=== PATIENT | male | born 1955 | race American Indian/Alaskan Native ===

== ENCOUNTER 2016-09-27 03:23 | Emergency (ER) | payer BC ==
[~2016-09-27] VITALS: Ht 180.3 cm; Wt 88.5 kg
[2016-09-27 03:53] LABS: BASO # 0.1 x10^3/uL (0.0-0.2); BASO % 1 % (0-3); EOS % 2 % (0-3); HEMATOCRIT 29.7 % (39.0-53.0); HEMOGLOBIN 9.9 g/dL (13.0-17.5); LYMPH # 1.5 x10^3/uL (1.0-4.8); LYMPH % 12 % (24-48); MEAN CORPUSCULAR HEMOGLOBIN 33 pg (25-35); MEAN CORPUSCULAR HGB CONC 33 g/dL (31-37); MEAN CORPUSCULAR VOLUME 99 fL (79-100); MONO % 6 % (0-9); NEUT % 80 % (31-73); PLATELET COUNT 551 x10^3/uL (140-400); RED BLOOD COUNT 3.01 x10^6/uL (4.30-5.70); RED CELL DISTRIBUTION WIDTH 13.3 % (11.5-14.5); WHITE BLOOD COUNT 12.2 x10^3/uL (4.0-11.0)
[2016-09-27 04:00] LABS: CALCIUM 8.7 mg/dL (8.5-10.1); CREATININE 1.1 mg/dL (0.7-1.3); GFR 67.6; POTASSIUM 3.9 mmol/L (3.5-5.1)
[2016-09-27] MEDS ORDERED: HYDROMORPHONE 2 MG/ML VIAL. IV ONE (04:00)
[2016-09-27] MEDS ORDERED: ONDANSETRON PF 4 MG/2 ML VIAL. IV ONE (04:00)
[2016-09-27 04:06] LABS: ALBUMIN 3.1 g/dL (3.4-5.0); ALBUMIN/GLOBULIN RATIO 0.8 (1.0-1.7); TOTAL BILIRUBIN 0.4 mg/dL (0.2-1.0); TOTAL PROTEIN 7.1 g/dL (6.4-8.2)
--- NOTE | 2016-09-27 05:57 | PHYS DOC ---
Past Medical History Past Medical History: Anxiety, Depression, High Cholesterol, Hypertension Additional Past Medical Histor: MOOD DISORDER Past Surgical History: Angioplasty, Coronary Bypass Surgery Additional Past Surgical Histo: AORTIC BY-PASS AND femoral popliteal BY PASS AT [facility] Alcohol Use: None Drug Use: None Adult General Chief Complaint Chief Complaint: LOWER EXT PAIN HPI HPI Patient is a 61 year old gentleman with a history significant for peripheral artery disease, hypertension, no history of diabetes liver longer kidney problems presents to the ER today for evaluation of severe pain to his left calf that woke him up from sleep approximately 220 5 in the morning. Patient reports that he had an aorto bifemoral bypass in the left femoropopliteal bypass at [facility] on September 13 and was discharged on September 20. Patient reports that he was doing well until 225 when he had severe pain to his calf. Patient reports that he's been having clear red drainage from his distal incision. Patient denies any fevers shakes chills nausea vomiting diarrhea chest pain or shortness of breath. Patient reports that he has been on Lortab 7. fives at home to control his discomfort however his pain has not been well controlled. Patient reports that he thinks it's because he is becoming resistant to the pain medicines because he has been on Lortab 7. fives for approximately 3 years for chronic migraine headaches.(I did review the patient' s K tracks and I am unable to find any evidence of this inescapable tracks however we do not have any documentation her records from [place] regarding narcotic use.) Patient denies any fevers shakes chills nausea vomiting diarrhea chest pain or shortness of breath. Patient's physical exam was significant for swelling to his left calf. Patient' s wounds were all clean and dry. There was some mild surrounding erythema around the staple sites without any purulence or significant drainage. Patient has good pulses distally. Patient has 2+ pitting edema to his left ankle. A sterile Q-tip was placed inside the wound between the poly in his distal wound and a significant amount of serosanguineous fluid was drained from the patient's calf.. Patient's calf is now soft and feels much better. Patient has no evidence of arterial occlusion. Patient's labs were all within normal limits. Patient has a white count is within normal range without any left shift. Patient's lactic acid was within normal limits. A/P #1 left calf pain patient is status post surgery at [facility]. Patient requested to come to the closest hospital facility for evaluation of his severe left calf pain. Patient's physical exam is consistent with likely seroma accumulation to his left calf which is most likely cause of his discomfort. The seroma was drained in the ED was significant decrease in swelling of his left calf and significant decrease in pain and discomfort. Patient was given 1 mg of IV Dilaudid in the ED with significant resolution of his discomfort. Patient is requesting that we send him home with something stronger than Lortab 7.5 to assist with his pain. I discussed with the patient and I will go ahead and write a prescription for Percocet 7.5 to assist with his discomfort. Prior to being discharged we will obtain ultrasound of his left lower extremity. If that is negative patient understands that he will be discharged home with strict instructions to follow-up with his surgeon for reevaluation of his wound today. I advised patient that if he is unable to see his surgeon today that he needs to follow-up with his primary care physician today for further assistance with this discomfort and reevaluation of his left leg wound. Early no significant evidence of any cellulitis in the ED and this has essentially been ruled out. I do not feel that this is sinus symptom of a DVT however we will get the ultrasound. I do not believe that this is sign or symptom consistent with arterial occlusion. She has good pulses distally. Review of Systems Review of Systems Constitutional: Denies fever or chills [] Eyes: Denies change in visual acuity, redness, or eye pain [] HENT: Denies nasal congestion or sore throat [] All other review systems are negative except as documented in the history of present illness. Current Medications Current Medications Current Medications Medications (Trade) Dose Ordered Sig/Andrea Start Time Stop Time Status Last Admin Dose Admin Cephalexin HCl (Keflex) 500 mg 1X ONCE 09/27/16 06:30 09/27/16 06:31 DC 09/27/16 06:30 500 MG Hydromorphone HCl (Dilaudid) 1 mg 1X ONCE 09/27/16 04:00 09/27/16 04:01 DC 09/27/16 03:55 1 MG Ondansetron HCl (Zofran) 4 mg 1X ONCE 09/27/16 04:00 09/27/16 04:01 DC 09/27/16 03:55 4 MG Allergies Allergies Allergies Coded Allergies Type Severity Reaction Last Updated Verified No Known Drug Allergies 09/27/16 No Physical Exam Physical Exam Constitutional: Well developed, well nourished, no acute distress, non-toxic appearance. [] HENT: Normocephalic, atraumatic, bilateral external ears normal, oropharynx moist, no oral exudates, nose normal. [] Eyes: PERRLA, EOMI, conjunctiva normal, no discharge. [] Neck: Normal range of motion, no tenderness, supple, no stridor. [] Cardiovascular:Heart rate regular rhythm, Lungs & Thorax: Bilateral breath sounds clear to auscultation [] Abdomen: Bowel sounds normal, soft, no tenderness, no masses, no pulsatile masses. [] Skin: Warm, dry, no erythema, no rash. Well-healing wounds as described above to his left lower extremity left groin right groin and right lower extremity. [ ] Back: No tenderness, no CVA tenderness. [] Extremities: No tenderness, no cyanosis, no clubbing, ROM intact, no edema. [] Neurologic: Alert and oriented X 3, normal motor function, normal sensory function, no focal deficits noted. [] Psychologic: Affect normal, judgement normal, mood normal. [] Current Patient Data Vital Signs Vital Signs Date Time Temp Pulse Resp B/P Pulse Ox O2 Delivery O2 Flow Rate FiO2 09/27/16 06:17 95 23 113/59 91 Nasal Cannula 2.5 09/27/16 03:36 99.5 99.5 Lab Values Laboratory Tests Test 09/27/16 03:40 09/27/16 04:20 White Blood Count 12.2x10^3/uL (4.0-11.0) H Red Blood Count 3.01x10^6/uL (4.30-5.70) L Hemoglobin 9.9g/dL (13.0-17.5) L Hematocrit 29.7% (39.0-53.0) L Mean Corpuscular Volume 99fL (79-100) Mean Corpuscular Hemoglobin 33pg (25-35) Mean Corpuscular Hemoglobin Concent 33g/dL (31-37) Red Cell Distribution Width 13.3% (11.5-14.5) Platelet Count 551x10^3/uL (140-400) H Neutrophils (%) (Auto) 80% (31-73) H Lymphocytes (%) (Auto) 12% (24-48) L Monocytes (%) (Auto) 6% (0-9) Eosinophils (%) (Auto) 2% (0-3) Basophils (%) (Auto) 1% (0-3) Neutrophils # (Auto) 9.7x10^3uL (1.8-7.7) H Lymphocytes # (Auto) 1.5x10^3/uL (1.0-4.8) Monocytes # (Auto) 0.7x10^3/uL (0.0-1.1) Eosinophils # (Auto) 0.3x10^3/uL (0.0-0.7) Basophils # (Auto) 0.1x10^3/uL (0.0-0.2) Sodium Level 142mmol/L (136-145) Potassium Level 3.9mmol/L (3.5-5.1) Chloride Level 104mmol/L (98-107) Carbon Dioxide Level 29mmol/L (21-32) Anion Gap 9 (6-14) Blood Urea Nitrogen 19mg/dL (8-26) Creatinine 1.1mg/dL (0.7-1.3) Estimated GFR (Cockcroft-Gault) 67.6 BUN/Creatinine Ratio 17 (6-20) Glucose Level 123mg/dL (70-99) H Calcium Level 8.7mg/dL (8.5-10.1) Total Bilirubin 0.4mg/dL (0.2-1.0) Aspartate Amino Transferase (AST) 20U/L (15-37) Alanine Aminotransferase (ALT) 26U/L (16-63) Alkaline Phosphatase 96U/L (46-116) Total Protein 7.1g/dL (6.4-8.2) Albumin 3.1g/dL (3.4-5.0) L Albumin/Globulin Ratio 0.8 (1.0-1.7) L Lactic Acid Level 0.9mmol/L (0.4-2.0) Laboratory Tests 09/27/16 03:40 Laboratory Tests 09/27/16 03:40 EKG EKG [] Radiology/Procedures Radiology/Procedures Ultrasound negative for DVT per tech. [] Course & Med Decision Making Course & Med Decision Making Pertinent Labs and Imaging studies reviewed. (See chart for details) [] Dragon Disclaimer Dragon Disclaimer This electronic medical record was generated, in whole or in part, using a voice recognition dictation system. Departure Departure Impression: Primary Impression: Seroma Additional Impression: Left leg pain Disposition: 01 HOME, SELF-CARE Condition: IMPROVED Referrals: CESAR BOURNE (PCP) Patient Instructions: Wound Check Additional Instructions: The pain to your left leg is most likely secondary to a seroma that is very common post surgery. Your seroma was drained in the emergency department. He will be placed on an antibiotic just in case there may be an early infection although this is unlikely. He will be given a prescription for pain medicines and he will be required to follow-up with her surgery doctor today for reevaluation of your wound. If you're unable to follow-up with her surgery doctor then please call your family doctor to be followed up today as well. Return to the ER if he started developing any fevers or if you have any further problems. Scripts Oxycodone/Apap 10-325 (Percocet 10-325 Mg Tablet)1 Each Tablet1 Tab PO QID PRN PAIN #14 TAB Prov:JOCE MCLAIN MD 09/27/16 Cephalexin (Keflex)500 Mg [id number] Mg PO QID 10 Days Prov:JOCE MCLAIN MD 09/27/16 Problem Qualifiers JOCE MCLAIN MD Sep 27, 2016 05:57
[2016-09-27] MEDS ORDERED: OXYC-250 PO (06:03)
[2016-09-27] MEDS ORDERED: CEPH-264 PO (06:03)
[2016-09-27 06:17] VITALS: BP 113/59
[2016-09-27] MEDS ORDERED: CEPHALEXIN 250 MG CAPSULE. PO ONE (06:30)
--- NOTE | 2016-09-27 07:03 | RAD ---
INDICATION: Leg swelling and redness. COMPARISON: None TECHNIQUE: Grayscale, color and spectral doppler ultrasound images are obtained through the left leg deep venous system. FINDINGS: Vascular flow is seen in the common femoral, superficial femoral, popliteal and visualized calf veins. At the left lower leg proximal to the region of poly within the subcutaneous soft tissues there is a complex appearing fluid collection identified measuring at least 55 x 19 millimeters. IMPRESSION: No deep vein thrombosis identified of the left leg. Within the subcutaneous soft tissues of the left lower leg there is a complex appearing fluid collection identified within the subcutaneous soft tissues. Could be from causes such as hematoma but cannot exclude infectious involvement on ultrasound. Electronically signed by: Marcel More (Sep 27, 2016 07:02:33)
== END 2016-09-27 06:56 | disposition home or self-care (01) ==
LOC: ER 03:23
DX: L76.34 Postprocedural seroma of skin and subcutaneous tissue following other procedure (principal); M79.662 Pain in left lower leg
CPT/HCPCS: 36415; 80053; 83605; 85027; 93971; 96374; 96375; 99285; J1170; J2405